=== PATIENT | male | born 1995 | race Caucasian/White ===

== ENCOUNTER 2019-03-08 08:39 | Inpatient (IN) | payer OTHER ==
[~2019-03-08] VITALS: Ht 185.4 cm; Wt 71.6 kg
--- NOTE | 2019-03-08 09:36 | REP ---
Chest two views HISTORY: Subcutaneous emphysema Comparison: None The lungs are clear. All small apical pneumothoraces are present. Pneumomediastinum is present. The heart is normal in size. The pulmonary vasculature is normal in appearance. The bony structure is intact. Subcutaneous emphysema is present overlying the upper thorax. IMPRESSION: 1. Small bilateral apical pneumothoraces. 2. Pneumomediastinum. Electronically Signed by Fox Varghese MD 03/08/2019 09:27 A
[2019-03-08] MEDS ORDERED: KCL 20MEQ IN D5/NS 1000ML 1,000 ML IV SCH (10:05)
[2019-03-08] MEDS ORDERED: ONDANSETRON 4MG/2ML VIAL (J2405) IV PRN (10:15)
[2019-03-08] MEDS ORDERED: ACETAMINOPHEN TAB 650MG DOSE (2X325MG) PO PRN (10:15)
[2019-03-08] MEDS ORDERED: NORCO, ANEXSIA 5/325MG TABLET (HYDROcodone/ACETAMINOPHEN) PO PRN (10:15)
[2019-03-08 10:28] LABS: BASO % 0.2 % (0.0-1.0); EOS # 0.1 10^3/uL (0.0-0.50); EOS % 0.8 % (0.0-3.0); HEMATOCRIT 43.5 % (42.0-52.0); HEMOGLOBIN 14.7 g/dl (13.5-17.5); LYMPH # 1.1 10^3/uL (1.5-6.5); LYMPH % 13.1 % (24.0-44.0); MEAN CORPUSCULAR HEMOGLOBIN 29.5 pg (27.0-33.0); MEAN CORPUSCULAR HGB CONC 33.8 g/dl (32.0-36.5); MEAN CORPUSCULAR VOLUME 87.2 fl (80.0-96.0); MONO # 0.6 10^3/uL (0.0-0.8); NEUTROPHILS # 6.7 10^3/uL (1.8-7.7); NEUTROPHILS % 78.7 % (36.0-66.0); PLATELET COUNT, AUTOMATED 237 10^3/uL (150-450); RED BLOOD COUNT 4.99 10^6/uL (4.30-6.10); WHITE BLOOD COUNT 8.5 10^3/uL (4.0-10.0)
[2019-03-08 10:38] LABS: PROTHROMBIN TIME 13.3 SECONDS (12.1-14.4)
--- NOTE | 2019-03-08 10:39 | HPE ---
DATE OF ADMISSION: 03/08/2019 Patient is seen at the request of the emergency room, Dr. Latasha Gray for cervical subcutaneous emphysema with voice changes and bilateral pneumothoraces. HISTORY OF PRESENT ILLNESS: The patient is a 23-year-old white male who yesterday morning after a paroxysm of coughing noticed swelling in his neck accompanied with neck discomfort and mild difficulty in breathing. He observed his condition over the next 24 hours and then went to sick call at [place] where he was instructed to come here. Since yesterday, he has noticed that his voice has become more and more hoarse, and has a nasal sound to it. He does not complain of shortness of breath at this time, although he states that when he takes a deep breath in there is a little bit of difficulty with inspiration. He was a former smoker, but now does vaping where he uses a pod a day throughout the day. He states that he does not cough with vaping. He says one pod is the equivalent of one pack of cigarettes. PAST MEDICAL HISTORY: None. MEDICATIONS AT HOME: None. He did take ibuprofen yesterday for his neck pain. PAST SURGERIES: Ear tubes as a child. ALLERGIES: No known drug allergies. TRAVEL HISTORY: He has been to [employer] in [place] for training, has not been to the [facility], nor is there any foreign travel. He has not been deployed. HABITS: The above history of smoking and vaping. He drinks socially on weekends. There are no illicit drugs. FAMILY HISTORY: Not relevant to the acute situation. EXPOSURES: There are no dogs, cats or birds at home. No exposure to tuberculosis. REVIEW OF SYSTEMS: CONSTITUTIONAL: Without fevers, chills, sweats or weight loss. EYES: Without diplopia. Without transient monocular blindness. Without jaundice. NOSE: Without epistaxis. MOUTH: Has his own teeth. RESPIRATORY: See history of present illness. CARDIAC: Without palpitations, tachycardias. Without intermittent claudication or prior myocardial infarctions. GASTROINTESTINAL (GI): With nausea, vomiting, diarrhea, constipation. No melena, hematochezia or hematemesis. Without abdominal pain. GENITOURINARY (): Without dysuria or hematuria, or history of renal stones. ENDOCRINE: Without diabetes. Without thyroid disease. NEUROLOGIC: Without paresthesia, paralyses or prior seizures. PSYCHIATRIC: Without pathological anxieties, depression or psychoses. HEMATOLOGIC: Without prolonged bleeding times. PHYSICAL EXAMINATION: GENERAL: Well-developed, well-nourished, white male in mild distress from mild discomfort. VITAL SIGNS: Temperature is 97.0, pulse of 60 and sinus rhythm, respiratory rate of 18 without the use of accessory muscles. He is 99% saturated on room air, and whose blood pressure is 150/70. EYES: Pupils equal, round and reactive to light. Extraocular motors intact. Sclera nonicteric. NOSE: Without deformity. MOUTH: Shows his mucous membranes to be pink and moist. Lips and commissures without lesions There is no thrush. Dentition in good repair. NECK: Shows subcutaneous emphysema up to the angle of the jaw. It is somewhat tender to palpation. I cannot appreciate lymphadenopathy or thyromegaly through the subcutaneous emphysema. Trachea is midline. I do not detect jugular venous distention (JVD). LUNGS: Show equal breath sounds on either side with crackles of subcutaneous emphysema particularly in the upper portions of the lung and at the base of the neck. Percussion note is full to the diaphragm. CARDIAC EXAM: Without murmurs, clicks, gallops or rubs. I cannot feel his point of maximal impulse (PMI). S1 and S2 are normal. ABDOMEN: Soft, nontender. Bowel sounds are positive. There is no hepatomegaly. No costovertebral angle (CVA) tenderness. EXTREMITIES: Show no pretibial edema. No calf tenderness. No differential swelling of the upper extremities. SKIN: Warm, dry and perfused without cyanosis or mottling including that of the nail beds and the knees. NEURO: Shows II through XII intact, along with gross motor and gross sensation intact. Gait is not tested. PSYCHIATRIC: Shows him to be awake and alert, oriented times three with appropriate mood, affect and conversational. CBC and BMP are pending. I will check them in a little while when they return. His chest x-ray shows a small 3-4 mm pneumothoraces. He has subcutaneous emphysema at the base of the neck and onto the upper portions of the chest wall. Costophrenic angles are sharp and there are no infiltrates. On the lateral film I do see mediastinal subcutaneous emphysema about mcc down. I do not see a pneumopericardium. IMPRESSION: 1. Spontaneous bilateral pneumothoraces. 2. Subcutaneous emphysema, probably secondary to coughing spell. PLAN AND DISCUSSION: Because of the extent of his neck subcutaneous emphysema he warrants admission. I will therefore admit him and watch him carefully on the monitor. Will take chest x-rays daily. At this point in time, I do not need to put chest tubes in him, but I warned him that should the pneumothoraces increase, then I will be obliged to put either one or even two chest tubes in bilaterally.
[2019-03-08 10:56] LABS: ALBUMIN 4.2 GM/DL (3.2-5.2); ALT/SGPT 21 U/L (12-78); BILIRUBIN,TOTAL 0.9 MG/DL (0.2-1.0); BLOOD UREA NITROGEN 13 MG/DL (7-18); CALCIUM LEVEL 9.3 MG/DL (8.5-10.1); CARBON DIOXIDE LEVEL 30 MEQ/L (21-32); CHLORIDE LEVEL 102 MEQ/L (98-107); CREATININE FOR GFR 0.95 MG/DL (0.70-1.30); GLOMERULAR FILTRATION RATE > 60.0 (>60); GLUCOSE, FASTING 88 MG/DL (70-100); POTASSIUM SERUM 4.5 MEQ/L (3.5-5.1); SODIUM LEVEL 140 MEQ/L (136-145)
[2019-03-08 12:05] VITALS: BP 129/77
[2019-03-08 16:00] VITALS: BP 118/60
[2019-03-08 20:00] VITALS: BP 133/70
[2019-03-09] VITALS: BP 122/56
[2019-03-09 04:00] VITALS: BP 109/64
[2019-03-09 05:19] LABS: BASO % 0.3 % (0.0-1.0); EOS # 0.1 10^3/uL (0.0-0.50); EOS % 1.7 % (0.0-3.0); HEMATOCRIT 39.7 % (42.0-52.0); HEMOGLOBIN 13.5 g/dl (13.5-17.5); LYMPH # 2.3 10^3/uL (1.5-6.5); LYMPH % 34.2 % (24.0-44.0); MEAN CORPUSCULAR HEMOGLOBIN 30.3 pg (27.0-33.0); MEAN CORPUSCULAR VOLUME 89.2 fl (80.0-96.0); MONO # 0.6 10^3/uL (0.0-0.8); MONO % 8.3 % (0.0-5.0); NEUTROPHILS # 3.7 10^3/uL (1.8-7.7); NEUTROPHILS % 55.2 % (36.0-66.0); PLATELET COUNT, AUTOMATED 207 10^3/uL (150-450); RED BLOOD COUNT 4.45 10^6/uL (4.30-6.10); WHITE BLOOD COUNT 6.7 10^3/uL (4.0-10.0)
[2019-03-09 05:43] LABS: BLOOD UREA NITROGEN 16 MG/DL (7-18); CALCIUM LEVEL 8.5 MG/DL (8.5-10.1); CARBON DIOXIDE LEVEL 31 MEQ/L (21-32); CHLORIDE LEVEL 104 MEQ/L (98-107); GLOMERULAR FILTRATION RATE > 60.0 (>60); GLUCOSE, FASTING 98 MG/DL (70-100); POTASSIUM SERUM 3.8 MEQ/L (3.5-5.1); SODIUM LEVEL 142 MEQ/L (136-145)
[2019-03-09 08:00] VITALS: BP 108/56
--- NOTE | 2019-03-09 08:12 | REP ---
Chest x-ray: Two views. History: Pneumothorax. Comparison chest x-ray March 08, 2019 showed subcutaneous emphysema and bilateral tiny apical pneumothoraces. Findings: There is no discernible pneumothorax on either side on today's radiographs. There is however pneumomediastinum and subcutaneous emphysema is noted in the supraclavicular and subclavian soft tissues and the base of the neck bilaterally. The pneumomediastinum and the extrathoracic air are essentially unchanged. Lung lange are otherwise clear. No pleural effusion is seen. No bony abnormality is seen Impression: Pneumomediastinum and bilateral supraclavicular subcutaneous emphysema persists. No visible pneumothorax. Electronically Signed by Maciej Borges MD 03/09/2019 08:04 A
[2019-03-09] MEDS ORDERED: NAPR220C14 PO (09:32)
--- NOTE | 2019-03-09 11:14 | DSES ---
DATE OF ADMISSION: 03/08/2019 DATE OF DISCHARGE: 03/09/2019 DISCHARGE DIAGNOSES: 1. Bilateral pneumothoraces. 2. Mediastinal emphysema. 3. Subcutaneous emphysema. HOSPITAL COURSE: The patient is a 23-year-old white male who was seen in the emergency room after being sent there by [facility] at [place]. He noted the day before admission after a paroxysm of coughing he noticed swelling in his neck, which was accompanied by neck discomfort and mild shortness of breath. Over the next 24 hours, he observed his condition and then went to sick call at [place] where he was instructed to come the emergency room. His chest x-ray showed small bilateral pneumothoraces approximately 3-4 mm each. He had mediastinal emphysema and subcutaneous emphysema. No chest tube was placed. He was carefully observed. When he first presented, he had subcutaneous emphysema up to the angle of the jaw and the day of discharge his subcutaneous emphysema had decreased down to the mid neck. His chest x-ray showed resolution of the pneumothoraces and dissipation of the subcutaneous emphysema. He is being discharged today on naproxen 220 mg twice a day as needed pain. He will return to see me in 7-10 days with a chest x-ray and followup. 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 He can walk and essentially rest for the next week or so. I will reevaluate him in 7-10 days to determine if he can return to his activities.
== END 2019-03-09 10:25 | disposition home or self-care (01) | DRG 201 ==
LOC: M ED 08:39 → M ED INP 10:05 → M ICU 11:56
PROVIDERS: ADMIT Thoracic Surgery (Cardiothoracic Vascular Surgery); ATTEND Thoracic Surgery (Cardiothoracic Vascular Surgery)
DX: J98.2 Interstitial emphysema (principal)